=== PATIENT | female | born 1955 | race Caucasian/White ===

== ENCOUNTER 2018-02-20 16:59 | Emergency (ER) | payer BC ==
--- NOTE | 2018-02-20 17:46 | EDM.PDOC ---
ED HPI GENERAL MEDICAL PROBLEM - General Chief Complaint: Allergic Reaction Stated Complaint: ALLERGIC REACTION Time Seen by Provider: 02/20/18 17:25 - History of Present Illness INITIAL COMMENTS - FREE TEXT/NARRATIVE: 62 yo history of HTN and bee allergy presents with concerns of rash First noted pruritic, rashed rash on her abdomen yesterday evening. No clear precipitation, did trial some new soap yesterday Progressed throughout the day today, now involving her back, axillas, arms, and scattered on the legs She denies any accompanying dyspnea, abnormal sensation in the throat, or abdominal pain Hx of bee allergies, no recent encounters, time course today not consistent with this. - Related Data Allergies Allergy/AdvReac Type Severity Reaction Status Date / Time Latex, Natural Rubber Allergy Rash Verified 02/20/18 17:09 venom-honey bee Allergy Anaphylactic Verified 02/20/18 17:09 Shock Home Meds: Home Meds Colesevelam [Welchol] 02/20/18 [History] Lisinopril 02/20/18 [History] hydroCHLOROthiazide [Hydrochlorothiazide] 02/20/18 [History] predniSONE [Prednisone] 40 mg PO DAILY 4 Days #8 tablet 02/20/18 [Rx] Past Medical History Cardiovascular History: Reports: Hypertension - Past Surgical History GI Surgical History: Reports: Cholecystectomy, Hernia Repair/Other Female Surgical History: Reports: Tubal Ligation Social & Family History - Tobacco Use Smoking Status *Q: Never Smoker ED ROS ALLERGIC REACTION - Review of Systems Review Of Systems: See Below Constitutional: Denies: Fever, Chills HEENT: Denies: Vision Change Respiratory: Denies: Shortness of Breath, Wheezing, Cough Cardiovascular: Denies: Chest Pain, Lightheadedness Endocrine: Denies: Fatigue GI/Abdominal: Denies: Abdominal Pain Musculoskeletal: Denies: Neck Pain, Shoulder Pain Skin: Reports: Pruritis, Rash, Erythema Neurological: Denies: Confusion, Dizziness Psychiatric: Denies: Agitation, Anxiety Hematologic/Lymphatic: Denies: Anemia Immunologic: Reports: Environmental Allergy ED EXAM GENERAL NO PERIP PULSE - Physical Exam Exam: See Below Exam Limited By: No Limitations General Appearance: Alert, No Apparent Distress Eye Exam: Bilateral Eye: EOMI Ears: Normal External Exam Nose: Normal Inspection Throat/Mouth: Normal Inspection, No Airway Compromise, Other (no oropharyngeal edema or swelling) Head: Atraumatic, Normocephalic Neck: Supple, Non-Tender Respiratory/Chest: Lungs Clear, Normal Breath Sounds. No: Wheezing, Stridor Cardiovascular: Regular Rate, Rhythm GI/Abdominal: Soft, Non-Tender Back Exam: Other (rash as noted) Extremities: Normal Inspection, Normal Range of Motion Neurological: Alert, Oriented, CN II-XII Intact, Normal Gait, No Motor/Sensory Deficits Psychiatric: Normal Affect, Normal Mood Skin Exam: Warm, Dry, Other (scattered areas of raised, urticarial rash on the abdomen, right upper back, right axilla, and less extensively on the extremities ) Course - Vital Signs Last Recorded V/S: Last Vital Signs Temp 36.9 C 02/20/18 17:19 Pulse 128 H 02/20/18 17:19 Resp 14 02/20/18 17:19 BP 163/85 H 02/20/18 17:19 Pulse Ox 98 02/20/18 17:19 - Orders/Labs/Meds Meds: Medications Discontinued Medications Generic Name Dose Route Start Last Admin Trade Name Sangita PRN Reason Stop Dose Admin Diphenhydramine HCl 25 mg 02/20/18 17:39 02/20/18 17:51 Benadryl PO 02/20/18 17:40 25 mg ONETIME ONE Administration Prednisone 40 mg 02/20/18 17:47 02/20/18 17:51 Prednisone PO 02/20/18 17:48 40 mg ONETIME ONE Administration Prednisone Confirm 02/20/18 17:49 Prednisone Administered 02/20/18 17:50 Dose 40 mg .ROUTE .STK-MED ONE - Re-Assessments/Exams Free Text/Narrative Re-Assessment/Exam: 62 yo with hx of bee allergy presents with concerns of urticarial rash Onset over the course of 24 hrs, no airway or angioedema, no other organ system involvement other than cutaneous Not anaphylaxsis, no indication for epi Will treat with short course of steroids, additional benadryl dose Observing for short period of time 02/20/18 18:02 Departure - Departure Time of Disposition: 18:35 Disposition: Home, Self-Care 01 Clinical Impression: Urticaria - Discharge Information *PRESCRIPTION DRUG MONITORING PROGRAM REVIEWED*: No *COPY OF PRESCRIPTION DRUG MONITORING REPORT IN PATIENT JEFF: No Prescriptions: predniSONE [Prednisone] 40 mg PO DAILY 4 Days #8 tablet Referrals: Curly Antony MD [Primary Care Provider] - Forms: ED Department Discharge Additional Instructions: Please take the prescribed steroids and the prescribed antibiotic Make a follow up appointment with your primary physician. Return for new symptoms such as difficulty breathing, abdominal pain and use your epipen as needed We recommend that you stop ibuprofen and any new soaps
[2018-02-20] MEDS ORDERED: predniSONE 20 MG Tab ONE (17:49)
[2018-02-20] MEDS: predniSONE 20 MG Tab PO ONE (17:51)
[2018-02-20] MEDS: diphenhydrAMINE 25 MG Cap PO ONE (17:51)
[2018-02-21] MEDS ORDERED: predniSONE 20 MG Tab PO ONE (17:45)
== END 2018-02-20 18:51 | disposition home or self-care (01) ==
LOC: JP.ED 16:59
DX: L50.9 Urticaria, unspecified (principal); I10 Essential (primary) hypertension; Z91.040 Latex allergy status; Z91.030 Bee allergy status; Z79.899 Other long term (current) drug therapy
CPT/HCPCS: 99283; A9270

== ENCOUNTER 2018-02-21 02:22 | Emergency (ER) | payer BC ==
[2018-02-21] MEDS ORDERED: methylPREDNISolone Sodium Succinate 125 MG/2 ML SDV IM ONE (02:50)
[2018-02-21] MEDS ORDERED: diphenhydrAMINE 50 MG/ML SDV IM ONE (02:50)
--- NOTE | 2018-02-21 03:00 | EDM.PDOC ---
ED HPI GENERAL MEDICAL PROBLEM - General Chief Complaint: Allergic Reaction Stated Complaint: Allergic Reaction Time Seen by Provider: 02/21/18 02:51 Source of Information: Reports: Patient History Limitations: Reports: No Limitations - History of Present Illness INITIAL COMMENTS - FREE TEXT/NARRATIVE: This patient was seen earlier tonight for urticaria. She was treated with Benadryl 25 mg and 40 mg Prednisone. She said it didn't help and she just got progressively worse throughout the night. Severe itching from groin up over chest. No sob or trouble speaking or swallowing. She has an epi-pen from previous reactions to bees and spiders but did not use it tonight. She did not know she was supposed to continue taking benadryl. She got an rx for Prednisone 40 mg daily. She doesn't know where the reaction started but says her right hand is really swollen. She has no idea what could have cause the reaction. 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 (see below) Other Treatments CUFFING MACHINE OPERATOR: none Right Hand Pain Score (Numeric/FACES): 4 - Related Data Allergies Allergy/AdvReac Type Severity Reaction Status Date / Time Latex, Natural Rubber Allergy Rash Verified 02/21/18 03:08 venom-honey bee Allergy Anaphylactic Verified 02/21/18 03:08 Shock Home Meds: Home Meds Colesevelam [Welchol] 625 mg PO ASDIRECTED 02/20/18 [History] Lisinopril 10 mg PO DAILY 02/20/18 [History] hydroCHLOROthiazide [Hydrochlorothiazide] 25 mg PO DAILY 02/20/18 [History] predniSONE [Prednisone] 40 mg PO DAILY 4 Days #8 tablet 02/20/18 [Rx] Past Medical History Cardiovascular History: Reports: Hypertension - Past Surgical History GI Surgical History: Reports: Cholecystectomy, Hernia Repair/Other Female Surgical History: Reports: Tubal Ligation ED ROS ALLERGIC REACTION - Review of Systems Review Of Systems: See Below Constitutional: Reports: No Symptoms HEENT: Reports: No Symptoms Respiratory: Reports: No Symptoms Cardiovascular: Reports: No Symptoms Endocrine: Reports: No Symptoms GI/Abdominal: Reports: No Symptoms : Reports: No Symptoms Musculoskeletal: Reports: Other (rt hand swelling) Skin: Reports: Rash, Urticaria Neurological: Reports: No Symptoms Psychiatric: Reports: No Symptoms Hematologic/Lymphatic: Reports: No Symptoms Immunologic: Reports: No Symptoms ED EXAM GENERAL NO PERIP PULSE - Physical Exam Exam: See Below Exam Limited By: No Limitations General Appearance: Alert, Mild Distress Eye Exam: Bilateral Eye: Normal Inspection Ears: Normal External Exam Nose: Normal Inspection Throat/Mouth: Normal Oropharynx Head: Atraumatic Neck: Normal Inspection Respiratory/Chest: Lungs Clear Cardiovascular: Regular Rate, Rhythm GI/Abdominal: Non-Tender Extremities: Other (edema to right hand and wrist. no visible bite wheatley) Neurological: Alert, Oriented Psychiatric: Normal Affect Skin Exam: Other (fairly sever urticaria to groin and lower abd. Less on chest. Very few wheals to extremities.) Course - Vital Signs Last Recorded V/S: Last Vital Signs Temp 35.7 C 02/21/18 02:38 Pulse 87 02/21/18 05:10 Resp 14 02/21/18 05:10 BP 112/67 02/21/18 05:10 Pulse Ox 98 02/21/18 05:10 - Orders/Labs/Meds Meds: Medications Discontinued Medications Generic Name Dose Route Start Last Admin Trade Name Sangita PRN Reason Stop Dose Admin Diphenhydramine HCl 50 mg 02/21/18 02:50 02/21/18 03:00 Benadryl IM 02/21/18 02:51 50 mg ONETIME ONE Administration Sodium Chloride 1,000 mls @ 999 mls/hr 02/21/18 04:15 02/21/18 04:26 Normal Saline IV 02/21/18 05:15 999 mls/hr ONETIME ONE Administration Methylprednisolone Sodium Succinate 125 mg 02/21/18 02:50 02/21/18 03:01 Solu-Medrol IM 02/21/18 02:51 125 mg ONETIME ONE Administration - Re-Assessments/Exams Free Text/Narrative Re-Assessment/Exam: 02/21/18 06:56 gave benadryl 50 mg IM and Solunedrol 125 mg im. She cleared after 45 min or so and alll itching gone. Her BP was dropping every time she stood up so gave 1 liter iv ns and that was resolved. Departure - Departure Time of Disposition: 02:51 Disposition: Home, Self-Care 01 Condition: Fair Clinical Impression: Urticaria - Discharge Information Instructions: Hives, [id number] Referrals: Curly Antony MD [Primary Care Provider] - Forms: ED Department Discharge Additional Instructions: Take Benadryl 50 mg 4 times daily or every 6 hours for 2 days. This causes sedation and may impair driving. Take Prednisone as previously directed. You may add one of the non-sedating antihistamines (Claritin etc) The acid blocking medications such as Tagamet, Zantac, Pepcid (but not Prilosec/ omeprazole) have a type of (weak) antihistamine effect and can also be added. Above all: DO NOT SCRATCH! This releases histamine and other substances that perpetuates the reaction in the rest of your body. For some people this starts in a hand or finger and scratching will spread it to the whole body. Resisting the urge to scratch when it first starts (and taking Benadryl) can stop the reaction. Try to find something that may be causing the reaction. Very few people are able to do this. It could be any medication, cosmetic, soap residue in clothing , dry skin, heat/cold etc.
[2018-02-21] MEDS ORDERED: Sodium Chloride 0.9% 1,000 ML IV ONE (04:15)
== END 2018-02-21 05:52 | disposition home or self-care (01) ==
LOC: JP.ED 02:22
DX: L50.9 Urticaria, unspecified (principal); I10 Essential (primary) hypertension; Z79.899 Other long term (current) drug therapy; Z91.040 Latex allergy status; Z91.030 Bee allergy status
CPT/HCPCS: 96360; 96372; 99283; J1200; J2930; J7030